=== PATIENT | female | born 1990 | race African-American/Black ===

== ENCOUNTER 2017-07-03 19:02 | Observation (INO) | payer OTHER ==
[~2017-07-03] VITALS: Ht 157.5 cm; Wt 95.3 kg
[2017-07-03 19:10] VITALS: BP 110/44; TEMP 97.7
[2017-07-03 19:52] LABS: PLATELET COUNT 387 K/uL (152-353)
[2017-07-03 20:02] LABS: POTASSIUM 3.4 mmol/L (3.6-5.2); SODIUM 140 mmol/L (136-145)
[2017-07-03 21:20] VITALS: BP 123/70; TEMP 98.3
--- NOTE | 2017-07-03 22:21 | NUR ---
PATIENT RECEIVED FROM ER VIA . PATIENT SPEAKS NO UZBEK. LANGUAGE LINE ACCESSED FOR [employer]. ALERT AND ORIENTED X 3. PATIENT GIVEN EDUCATION REGARDING BED CONTROLS AND CALL LIGHT. INSTRUCTED TO KEEP BED IN LOW POSITION. 18G SL INTACT TO [facility] AND IS PATENT. , WHO ALSO DOESN'T SPEAK UZBEK IS AT BEDSIDE.
[2017-07-03 22:55] VITALS: BP 116/64; TEMP 99; Ht 157.5 cm; Wt 95.3 kg
[2017-07-04] VITALS: BP 116/64; TEMP 99
[2017-07-04 04:00] VITALS: BP 101/56; TEMP 98.2
[2017-07-04 04:06] LABS: PLATELET COUNT 333 K/uL (152-353)
[2017-07-04 04:36] LABS: POTASSIUM 4.4 mmol/L (3.6-5.2); SODIUM 139 mmol/L (136-145)
[2017-07-04 08:00] VITALS: BP 91/54; TEMP 99.3
[2017-07-04 12:00] VITALS: BP 90/47; TEMP 98.8
--- NOTE | 2017-07-04 14:50 | NUR ---
IV D/C'D. TELE D/C'D. D/C INSTRUCTIONS GIVEN (VIA TRANSLATER). PT HAS NO FUTHER QUESTIONS OR CONCERNS. PT AMBULATED OUT AT THIS TIME. NO PROBLEMS NOTED.
== END 2017-07-04 14:35 | disposition home or self-care (01) ==
LOC: ED 19:02 → MED/SURG 21:00
PROVIDERS: Emergency Medicine
DX: R07.89 Other chest pain (principal); M54.89 Other dorsalgia; M54.2 Cervicalgia; R11.2 Nausea with vomiting, unspecified; D72.828 Other elevated white blood cell count
CPT/HCPCS: 36415; 74022; 80053; 81000; 82150; 82550; 83690; 84484; 85027; 85379; 85610; 85730; 86318; 93005; 94760; 96361; 96367; 96372; 96374; 99220; 99284; G0378; J1650; J2270; J2405; J3490